=== PATIENT | female | born 1985 | race Caucasian/White ===

== ENCOUNTER 2017-10-01 06:11 | Outpatient (CLI) | payer OTHER ==
[~2017-10-01 06:11] MED LIST: ENDOCET 5-3251 EACH PO; MOTRIN800 MG PO
[2017-10-01 06:29] VITALS: BP 131/79
[2017-10-01 06:44] LABS: BASOPHIL (%) 0.4 % (0-1); EOSINOPHIL (%) 0.8 % (0-5); EOSINOPHIL COUNT 0.1 K/uL (0-0.3); HEMATOCRIT 32.5 % (36.0-46.0); HEMOGLOBIN 11.3 G/DL (11.9-15.5); IMMATURE GRANULOCYTE (%) 0.6 % (0.0-0.7); LYMPHOCYTE (%) 28.4 % (15-42); LYMPHOCYTE COUNT 2.7 K/uL (1.0-2.8); MCH 30.5 PG (29.0-34.0); MCHC 34.8 G/DL (30.0-36.0); MCV 87.6 FL (83-99); MONOCYTE (%) 4.3 % (3-12); MONOCYTE COUNT 0.4 K/uL (0-0.8); NEUTROPHIL (%) 65.5 % (45-76); NEUTROPHIL COUNT 6.3 K/uL (1.8-6.4); PLATELET COUNT 234 K/uL (156-360); RBC DIS.WIDTH-CV 13.2 % (11.8-14.6); RBC DIS.WIDTH-SD 41.9 % (39-53); RED BLOOD COUNT 3.71 M/uL (3.80-5.20); WHITE BLOOD COUNT 9.7 K/uL (4.1-10.2)
[2017-10-01 06:57] LABS: FIBRINOGEN 251 mg/dL (150-450)
[2017-10-01 07:05] LABS: ALBUMIN 3.4 G/DL (3.2-4.8); CHLORIDE 106 MEQ/L (99-109); POTASSIUM 3.7 MEQ/L (3.7-5.4); SODIUM 137 MEQ/L (136-147); TOTAL BILIRUBIN 0.3 MG/DL (0.0-1.0)
[2017-10-01 07:14] VITALS: BP 123/82
[2017-10-01 07:15] LABS: ALKALINE PHOSPHATASE 65 IU/L (3-129); ALT (GPT) 7 IU/L (3-49); AST (GOT) 9 IU/L (2-34); GLUCOSE 92 mg/dL (70-99); UREA NITROGEN (BUN) 9 mg/dL (9-23)
[2017-10-01 08:02] LABS: CREATININE < 0.2 MG/DL (0.6-1.3); GFR ESTIMATE (CALCULATED) > 59 mL/min/
[2017-10-01 10:33] LABS: AMPHETAMINE NEGATIVE (500 ng/mL); BARBITURATES NEGATIVE (200 ng/mL); BENZODIAZEPINES NEGATIVE (150 ng/mL); BUPRENORPHINE NEGATIVE (10 ng/mL); COCAINE NEGATIVE (150 ng/mL); METHADONE NEGATIVE (200 ng/mL); METHAMPHETAMINE NEGATIVE (500 ng/mL); OPIATES (MORPHINE) NEGATIVE (100 ng/mL); OXYCODONE NEGATIVE (100 ng/mL); PHENCYCLIDINE NEGATIVE (25 ng/mL); PROPOXYPHENE NEGATIVE (300 ng/mL); THC CANNABINOIDS NEGATIVE (50 ng/mL); TRICYCLIC ANTIDEPRESSANTS NEGATIVE (300 ng/mL)
== END 2017-10-01 08:40 | disposition short-term general hospital (02) ==
LOC: LDRP-OP 06:11 → 2WEST 06:12
PROVIDERS: Obstetrics & Gynecology
DX: O44.12 Complete placenta previa with hemorrhage, second trimester (principal); O99.412 Diseases of the circulatory system complicating pregnancy, second trimester; R01.1 Cardiac murmur, unspecified; O99.342 Other mental disorders complicating pregnancy, second trimester; F41.0 Panic disorder [episodic paroxysmal anxiety]; Z82.49 Family history of ischemic heart disease and other diseases of the circulatory system; Z83.3 Family history of diabetes mellitus; Z86.19 Personal history of other infectious and parasitic diseases
CPT/HCPCS: 59025; 76805; 80053; 85025; 85384; 85610; 86850; 86900; 86901; 86920; 87081; G0378; J0702; J7120

== ENCOUNTER 2017-11-07 07:36 | Outpatient (CLI) | payer OTHER ==
[2017-11-07 08:01] VITALS: BP 113/67
[2017-11-07 09:52] LABS: HEMATOCRIT 31.9 % (36.0-46.0); HEMOGLOBIN 10.7 G/DL (11.9-15.5); MCH 30.5 PG (29.0-34.0); MCHC 33.5 G/DL (30.0-36.0); MCV 90.9 FL (83-99); PLATELET COUNT 216 K/uL (156-360); RBC DIS.WIDTH-CV 13.7 % (11.8-14.6); RBC DIS.WIDTH-SD 45.3 % (39-53); RED BLOOD COUNT 3.51 M/uL (3.80-5.20); WHITE BLOOD COUNT 9.3 K/uL (4.1-10.2)
[2017-11-07 10:14] LABS: PTT 27.2 SEC (25-37)
[2017-11-07 10:41] LABS: FIBRINOGEN 299 mg/dL (150-450)
[2017-11-07 10:53] VITALS: BP 99/54
[2017-11-07 15:21] VITALS: BP 106/63
[2017-11-07] MEDS ORDERED: FERRETTS325 MG PO (17:10)
[2017-11-07] MEDS ORDERED: VITAFOL-OB+DHA1 EACH PO (17:11)
[2017-11-07 19:59] VITALS: BP 111/71
[2017-11-07 22:15] VITALS: BP 112/59
[2017-11-08 02:24] VITALS: BP 107/61
[2017-11-08 06:41] VITALS: BP 108/68
== END 2017-11-08 08:11 | disposition home or self-care (01) ==
LOC: LDRP-OP 07:36 → 2WEST 07:37 → LDRP-OP 02-05 08:54
PROVIDERS: Obstetrics & Gynecology Obstetrics
DX: O44.53 Low lying placenta with hemorrhage, third trimester (principal); Z3A.29 29 weeks gestation of pregnancy
CPT/HCPCS: 59025; 76805; 76815; 85027; 85384; 85610; 85730; 86850; 86900; 86901; G0378; J7120